=== PATIENT | female | born 1960 | race Two or more races ===

== ENCOUNTER → 2018-09-25 | Outpatient (CLI) | payer OTHER | END | disposition home or self-care (01) | LOC: RAD 08:43 | PROVIDERS: ATTEND Family Medicine | DX: M51.36 Other intervertebral disc degeneration, lumbar region (principal); M48.061 Spinal stenosis, lumbar region without neurogenic claudication; M12.88 Other specific arthropathies, not elsewhere classified, other specified site | CPT/HCPCS: 72148 ==

== ENCOUNTER → 2019-03-19 | Outpatient (CLI) | payer OTHER | END | disposition home or self-care (01) | LOC: CFH 15:13 → EDSTATUS 16:00 | PROVIDERS: ATTEND Family Medicine | DX: K11.20 Sialoadenitis, unspecified (principal) | CPT/HCPCS: 76536 ==

== ENCOUNTER 2019-10-28 16:14 | Emergency (ER) | payer OTHER ==
[~2019-10-28] VITALS: Ht 149.9 cm; Wt 71.9 kg
--- NOTE | 2019-10-28 16:50 | NUR ---
PT HAS CO WORSENING SYMPTOMS. PT WAS DIAGNOSED AND PRESCRIBED AUGMENTIN FOR BRONCHITIS. PT STATES HIS CHEST HURTS FROM COUGHING. PA AT BEDSIDE. POC DISCUSSED. PT NOT IN DISTRESS.
[2019-10-28] MEDS ORDERED: DEXAMETHASONE 4 MG TABLET PO ONE (17:00)
[2019-10-28] MEDS ORDERED: DEXAMETHASONE 4 MG TABLET ONE (17:02)
[2019-10-28 17:09] VITALS: BP 138/75
[2019-10-28 17:11] LABS: RAPID INFLUENZA A Negative (Negative); RAPID INFLUENZA B POSITIVE (Negative)
--- NOTE | 2019-10-28 17:14 | NUR ---
MEDICATED PER ORDERS. CXR COMPLETE
--- NOTE | 2019-10-28 17:49 | NUR ---
Patient/Caregiver given discharge instructions and they have confirmed that they understand the instructions. Patient ambulatory with steady gait.
== END 2019-10-28 18:15 | disposition home or self-care (01) ==
LOC: ED 17:15
DX: J10.1 Influenza due to other identified influenza virus with other respiratory manifestations (principal); E11.9 Type 2 diabetes mellitus without complications; J44.9 Chronic obstructive pulmonary disease, unspecified; I25.2 Old myocardial infarction; Z86.73 Personal history of transient ischemic attack (TIA), and cerebral infarction without residual deficits
CPT/HCPCS: 71046; 87400; 93005; 99284